=== PATIENT | male | born 1985 | race African-American/Black ===

== ENCOUNTER 2024-02-09 17:03 | Emergency (ER) | payer OTHER ==
[2024-02-09 17:13] VITALS: BP 140/87; TEMP 98; BMI 32.5
[2024-02-09] MEDS: LACTATED RINGERS SOLUTION 1000 ML INFUS.BAG IV ONE (18:25)
[2024-02-09 18:26] LABS: BASO % 0.4 % (0-2.0); EOS % 2.9 % (0-4.5); HEMOGLOBIN 14.2 GM/dL (11.7-16.9); LYMPH % 23.6 % (8-40); MCH 30.4 pg (25.7-33.7); MCHC 33.8 g/dl (32.0-35.9); MEAN CELL VOLUME 89.9 fl (80-96); MEAN PLT VOLUME 7.9 fl (7.5-11.1); MONO % 8.7 % (3.8-10.2); NEUT % 64.4 % (42.8-82.8); PLATELET COUNT 246 10^3/uL (134-434); RBC 4.68 M/mm3 (4.00-5.60); RDW 13.3 % (11.9-15.9); WHITE BLOOD COUNT 3.7 K/mm3 (4.0-10.0)
[2024-02-09 18:43] LABS: POTASSIUM 4.3 mmol/L (3.5-5.1)
[2024-02-09 18:47] LABS: ALBUMIN 4.1 g/dl (3.4-5.0); BLOOD UREA NITROGEN 8.7 mg/dL (7-18); CALCIUM 9.2 mg/dL (8.5-10.1)
[2024-02-09 18:50] LABS: CREATININE 0.9 mg/dL (0.55-1.3); PHOSPHOROUS 2.9 mg/dL (2.5-4.9)
[2024-02-09 18:52] LABS: BILIRUBIN,TOTAL 0.6 mg/dL (0.2-1)
[2024-02-09 19:43] VITALS: PULSE 82; RESP 19
== END 2024-02-09 19:50 | disposition home or self-care (01) ==
LOC: JER 17:03
DX: R25.2 Cramp and spasm (principal); R53.83 Other fatigue
CPT/HCPCS: 36415; 80053; 83735; 84100; 85025; 99283-25